=== PATIENT | male | born 1985 | race American Indian/Alaskan Native ===

== ENCOUNTER 2016-05-17 02:16 | Emergency (ER) | payer OTHER ==
[2016-05-17] MEDS ORDERED: NORCO 5/325 PO ONE (04:46)
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
[2016-05-17 05:20] VITALS: BP 124/72
== END 2016-05-17 04:51 | disposition home or self-care (01) ==
LOC: ED 02:16
DX: M25.561 Pain in right knee (principal); J45.909 Unspecified asthma, uncomplicated; F17.200 Nicotine dependence, unspecified, uncomplicated; V87.7XXA Person injured in collision between other specified motor vehicles (traffic), initial encounter; X58.XXXA Exposure to other specified factors, initial encounter; Y93.89 Activity, other specified; Y99.9 Unspecified external cause status; Y92.410 Unspecified street and highway as the place of occurrence of the external cause

== ENCOUNTER 2016-07-30 22:31 | Emergency (ER) | payer OTHER | END 2016-07-30 23:00 | disposition left against medical advice (07) | LOC: ED 22:31 | DX: M54.9 Dorsalgia, unspecified (principal); V89.2XXA Person injured in unspecified motor-vehicle accident, traffic, initial encounter; Y92.488 Other paved roadways as the place of occurrence of the external cause; Y93.89 Activity, other specified; Y99.8 Other external cause status; Z53.21 Procedure and treatment not carried out due to patient leaving prior to being seen by health care provider ==